=== PATIENT | male | born 2005 | race Caucasian/White ===

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

== ENCOUNTER 2024-01-24 07:09 | Outpatient (OUT) | payer OTHER, SELFPAY ==
[2024-01-24 07:42] LABS: Bilirubin Urine NEGATIVE (NEGATIVE); Blood Urine LARGE (NEGATIVE); Clarity Urine CLEAR (CLEAR); Color Urine YELLOW (YELLOW); Glucose Urine UA NEGATIVE (NEGATIVE); Ketones Urine NEGATIVE (NEGATIVE); Leukocyte Esterase Urine NEGATIVE (NEGATIVE); Nitrite Urine NEGATIVE (NEGATIVE); Protein Urine NEGATIVE (NEG/TRACE); Specific Gravity Urine 1.025 (1.005-1.025); Urobilinogen Urine 0.2 EU/dL (0.2-1.0)
[2024-01-24 07:54] LABS: Bacteria Urine NONE SEEN #/HPF (NONE SEEN); Crystals Seen? None Seen #/HPF (None Seen); Mucus Urine NONE SEEN (NONE SEEN); Squamous Epithelial Cell Urine NONE SEEN #/LPF (NONE/RARE); WBC Urine NONE SEEN #/HPF (NONE SEEN)
[2024-01-24 07:55] LABS: Cast Seen? NONE SEEN #/LPF (NONE SEEN)
[2024-01-24 08:50] LABS: Anion Gap 12.2; BUN Creatinine Ratio 15.2; Calcium 8.6 mg/dL (8.5-10.1); Carbon Dioxide 29.5 mmol/L (21.0-32.0); Chloride 103 mmol/L (98-107); Estimated GFR (African America >60 (>=60); Estimated GFR (Non-African Ame >60 (>=60); Glucose 76 mg/dL (74-106); Potassium 3.7 mmol/L (3.5-5.1); Sodium 141 mmol/L (136-145)
[2024-01-24 09:11] LABS: Body Surface Area 1.75; Total Volume 24 Hour Urine 800 mL/24hr
[2024-01-24 09:17] LABS: Creatinine 24 Hour Urine 1322.72 mg/24 hr (1000.0-2000.00); Creatinine Urine Random 165.34 mg/dL (20.00-300.00)
[2024-01-24 11:10] LABS: Creatinine Clearance Urine 81.11 mL/min (85.00-125.00)
== END 2024-01-24 07:10 | disposition home or self-care (01) ==
LOC: LAB 07:11
PROVIDERS: PCP Family Medicine
DX: N02.B9 Other recurrent and persistent immunoglobulin A nephropathy (principal)
CPT/HCPCS: 36415; 80048; 81001; 81050; 82575; 84156

== ENCOUNTER 2024-08-07 06:38 | Outpatient (OUT) | payer OTHER, SELFPAY ==
[2024-08-07 07:03] LABS: Basophils Percent Auto 0.6 % (0.2-2.0); Eosinophils Absolute Auto 0.2 10^3/uL (0.0-0.7); Eosinophils Percent Auto 4.4 % (0.9-7.0); Hematocrit 45.1 % (42.0-54.0); Immature Granulocytes Abs Auto 0.01 10^3/uL (0.00-0.03); Immature Granulocytes Pct Auto 0.2 % (0.0-0.5); Lymphocytes Absolute Auto 1.3 10^3/uL (1.2-3.8); Lymphocytes Percent Auto 24.9 % (20.5-60.0); Mean Corpuscular HGB Conc 35.5 g/dL (29.9-35.2); Mean Corpuscular Hemoglobin 29.4 pg (25.9-34.0); Mean Corpuscular Volume 82.8 fL (80.0-94.0); Mean Platelet Volume 9.6 fL (9.5-13.5); Monocytes Absolute Auto 0.4 10^3/uL (0.3-0.8); Monocytes Percent Auto 6.7 % (1.7-12.0); Neutrophils Absolute Auto 3.3 10^3/uL (1.4-6.5); Neutrophils Percent Auto 63.2 % (43.0-75.0); Platelet Count 202 10^3/uL (150-450); Red Blood Count 5.45 10^6/uL (4.70-6.10); Red Cell Distribution Width 11.9 % (11.0-15.0); White Blood Count 5.2 10^3/uL (4.0-11.0)
[2024-08-07 07:06] LABS: Bilirubin Urine NEGATIVE (NEGATIVE); Blood Urine LARGE (NEGATIVE); Clarity Urine CLEAR (CLEAR); Color Urine YELLOW (YELLOW); Glucose Urine UA NEGATIVE (NEGATIVE); Ketones Urine NEGATIVE (NEGATIVE); Leukocyte Esterase Urine NEGATIVE (NEGATIVE); Nitrite Urine NEGATIVE (NEGATIVE); Protein Urine NEGATIVE (NEG/TRACE); Specific Gravity Urine 1.025 (1.005-1.025)
[2024-08-07 07:17] LABS: Bacteria Urine TRACE #/HPF (NONE SEEN); Mucus Urine TRACE (NONE SEEN); RBC Urine 20-50 #/HPF (0-2); WBC Urine NONE SEEN #/HPF (NONE SEEN)
[2024-08-07 07:18] LABS: Cast Seen? NONE SEEN #/LPF (NONE SEEN); Crystals Seen? None Seen #/HPF (None Seen); Squamous Epithelial Cell Urine NONE SEEN #/LPF (NONE/RARE)
[2024-08-07 08:46] LABS: BUN Creatinine Ratio 14.7; Calcium 8.5 mg/dL (8.5-10.1); Carbon Dioxide 29.7 mmol/L (21.0-32.0); Chloride 101 mmol/L (98-107); Estimated GFR (African America >60 (>=60 mL/min/1.73m^2); Estimated GFR (Non-African Ame >60 (>=60 mL/min/1.73m^2); Glucose 97 mg/dL (74-106); Potassium 3.7 mmol/L (3.5-5.1); Sodium 139 mmol/L (136-145)
[2024-08-07 08:48] LABS: Creatinine Urine Random 90.52 mg/dL (20.00-300.00); Total Protein Urine Random 6.4 mg/dL (<=11.9)
[2024-08-07 09:24] LABS: Creatinine 24 Hour Urine 1267.28 mg/24 hr (1000.0-2000.00); Total Protein 24 Hour Urine 89.6 mg/24hr (<=149.1); Total Volume 24 Hour Urine 1400 mL/24hr
== END 2024-08-07 06:39 | disposition home or self-care (01) ==
LOC: LAB 06:40
PROVIDERS: PCP Family Medicine
DX: N02.B9 Other recurrent and persistent immunoglobulin A nephropathy (principal)
CPT/HCPCS: 36415; 80048; 81001; 81050; 82042; 82570; 84156; 85025